=== PATIENT | male | born 1950 | race Caucasian/White ===

== ENCOUNTER 2017-02-22 06:21 | Inpatient (IN) | payer OTHER ==
[2017-01-24 12:48] VITALS: BMI 26.0
--- NOTE | 2017-01-24 13:19 | PAT Medication Instructions ---
Service Date Jan 24, 2017. Current Home Medication List Atorvastatin (Lipitor), 60 MG PO QAM Clopidogrel Bisulfate (Plavix), 75 MG PO QAM Levothyroxine Sodium (Levothyroxine Sodium), 1 TAB PO QAM Lisinopril (Lisinopril), 40 MG PO QAM Pantoprazole (Protonix), 40 MG PO QAM Medication Instructions For Your Scheduled Surgery - Hold the following medications for 7 days per anesthesia guidelines, check with your prescriber : Clopidogrel Bisulfate (Plavix), 75 MG PO QAM - Hold the following medications the morning of surgery: Lisinopril (Lisinopril), 40 MG PO QAM - Take the following medications the morning of surgery with a sip of water: Pantoprazole (Protonix), 40 MG PO QAM Levothyroxine Sodium (Levothyroxine Sodium), 1 TAB PO QAM Atorvastatin (Lipitor), 60 MG PO QAM If you have any questions please call us at [phone] or [phone] or [phone]
[2017-01-24 14:11] LABS: BASO % 0.1 %; BASO ABS # 0.01 K/uL (0-0.2); COMPLETE YES; EOS % 0.4 %; HEMATOCRIT 42.8 % (42-52); IG% 0.1 %; LYMPH % 17.6 %; LYMPH ABS # 1.28 K/uL (1.2-3.4); MEAN CELL VOLUME 95.3 fL (80-100); MEAN CORPUSCULAR HEMOGLOBIN 32.5 pg (25-34); MEAN CORPUSCULAR HGB CONC 34.1 g/dl (32-36); MONO % 6.2 %; NEUT % 75.6 %; PLATELET COUNT 227 K/uL (130-400); RED BLOOD COUNT 4.49 M/uL (4.7-6.1); WHITE BLOOD COUNT 7.28 K/uL (4.8-10.8)
[2017-01-24 14:16] LABS: URINE APPEARANCE CLEAR (CLEAR); URINE BILIRUBIN NEG (NEG); URINE COLOR YELLOW; URINE NITRITE NEG (NEG); UROBILINOGEN NEG (NEG)
[2017-01-24 14:17] LABS: CALCIUM 9.2 mg/dl (8.5-10.1); CREATININE 1.6 mg/dl (0.60-1.40); POTASSIUM 4.1 mmol/L (3.5-5.1)
[2017-01-24 14:18] LABS: PROTHROMBIN TIME (PATIENT) 10.3 SECONDS (9.0-12.0)
[2017-01-24 14:26] LABS: MANUAL MICROSCOPIC REQUIRED? NO; REVIEW REQ? NO
--- NOTE | 2017-01-24 14:42 | DIAGNOSTIC IMAGING REPORT ---
CHEST PREADMISSION(PA/LAT) HISTORY: Preop. COMPARISON: None. FINDINGS: Old, healed right-sided rib fractures. The lungs are clear. No pleural effusions. No pneumothorax. The heart is normal in size. IMPRESSION: No acute process. Electronically signed by: Mario Cowart M.D. 01/24/2017 2:41 PM Dictated Date/Time: 01/24/2017 2:40 PM
--- NOTE | 2017-02-20 14:10 | HISTORY & PHYSICAL EXAMINATION ---
DATE OF ADMISSION: CHIEF COMPLAINT: Right hip pain. HISTORY OF PRESENT ILLNESS: The patient is a 67-year-old gentleman with known osteoarthritis about his right hip. He is unable to take anti-inflammatories due to use of Plavix. He has pain and disability with activities of daily living. He has pain with prolonged weightbearing and standing activities. He has difficulty with any kneeling, bending, or squatting activities. Due to ongoing pain and disability, he now desires to proceed with right total hip arthroplasty. PAST MEDICAL HISTORY: Coronary artery disease status post cardiac stents, hypertension, hypercholesterolemia, hypothyroidism, acid reflux. PAST SURGICAL HISTORY: Cholecystectomy, hernia repair. MEDICATIONS: Lisinopril 40 mg daily, pantoprazole 40 mg daily, levothyroxine 125 mcg daily, Plavix 75 mg daily, atorvastatin 40 mg 1-1/2 tablets daily. ALLERGIES: No known drug allergies. SOCIAL HISTORY: He states weekly alcohol use. PHYSICAL EXAMINATION: GENERAL: Well-nourished, well-developed male who appears stated age. HEENT: Normocephalic, atraumatic, extraocular movements intact, oropharynx pink and moist. NECK: Supple without adenopathy. LUNGS: Clear to auscultation bilaterally. HEART: Regular rate and rhythm. ABDOMEN: Soft, nontender, nondistended. EXTREMITIES: Upper extremities are within normal limits. The right hip demonstrates limited range of motion. There is 0 degrees of external rotation, 20 degrees of internal rotation. X-RAYS: X-rays were reviewed. He has severe osteoarthritis about the right hip with complete loss of the joint space. There are large osteophytes about the femoral head and acetabulum. There is deformation of the femoral head. ASSESSMENT: Right hip degenerative joint disease. PLAN: Risks versus benefits were discussed. Consent was obtained. The patient's primary care physician is Dr. Gamal Rowley from [place]. We will proceed with right total hip arthroplasty upon preoperative workup and medical clearance.
[2017-02-22] VITALS (8 sets, daily range): BP systolic 106–134; BP diastolic 61–84; PULSE 58–102; TEMP 36.4–37.1; O2SAT 95–99; Ht 177.8 cm; Wt 82.0 kg
[~2017-02-22] VITALS: Ht 177.8 cm; Wt 82.0 kg
[~2017-02-22 06:21] MED LIST: ACETAMINOPHEN 500 MG TAB PO SCH; ATOR-24 PO; CEFAZOLIN 2000MG IV PUSH 10 ML IV SCH; CLOP1TAB5 PO; CeleBREX 200 MG CAP PO SCH; DEXAMETHASONE 4 MG TAB PO SCH; FAMOTIDINE 20 MG TAB PO SCH; GABAPENTIN 300 MG CAP PO SCH; LACTATED RINGER'S 1000ML 1,000 ML IV SCH; LACTATED RINGER'S 1000ML IV SCH; LACTATED RINGER'S 500 ML IV SCH; LEVO125T5 PO; LSN40 PO; METOCLOPRAMIDE HCL 10 MG TAB PO SCH; PANT40TA PO; ROPIVACAINE 5MG/ML 30 ML 150 MG, BUPIVACAINE 0.5% MPF INJ 30 ML, EpINEphrine HCL INJ 0.... INFIL SCH
[2017-02-22] MEDS: TRANEXAMIC ACID INJ 1,000 MG in SODIUM CHLORIDE 0.9% 100ML 100 ML IV SCH ×2 (06:30→08:47)
[2017-02-22] MEDS ORDERED: BUPIVACAINE 0.5 % 5 MG/1 ML PF 10ML VIAL ONE (06:47)
--- NOTE | 2017-02-22 07:37 | History & Physical Bridge Note ---
H&P Re-Evaluation Bridge Note: I have examined the patient, reviewed the History & Physical and in the interval since the performance of the History & Physical I have noted the following changes of clinical significance: No changes noted
[2017-02-22] MEDS ORDERED: MIDAZOLAM HCL 1 MG/ML 2ML VIAL ONE ×2 (07:43→08:39)
[2017-02-22] MEDS ORDERED: FENTANYL CITRATE INJ 50 MCG/1 ML 2 ML VIAL ONE (07:43)
[2017-02-22] MEDS ORDERED: POVIDONE-IODINE OP SOLN 30 ML BTL ONE (08:13)
[2017-02-22] MEDS ORDERED: ORTHO JOINT ANESTHETIC ONE (08:13)
[2017-02-22] MEDS ORDERED: BACITRACIN 50000 UNIT VIAL ONE (08:13)
[2017-02-22] MEDS ORDERED: NALOXONE HCL 0.4 MG/1 ML VIAL/CARP IV PRN (08:15)
[2017-02-22] MEDS ORDERED: PHENYLEPHRINE 100MCG/ML 5ML SYR IV PRN (08:15)
[2017-02-22] MEDS ORDERED: HYDROmorphone INJ 2 MG/ML SYR/VIAL IV PRN (08:15)
[2017-02-22] MEDS ORDERED: MEPERIDINE HCL 25 MG/ML CARP IV PRN (08:15)
[2017-02-22] MEDS ORDERED: ONDANSETRON INJ 2 MG/ML 2 ML VIAL IV PRN ×2 (08:15→10:30)
[2017-02-22] MEDS ORDERED: FLUMAZENIL 0.1 MG/1 ML 10 ML VIAL IV PRN (08:15)
[2017-02-22] MEDS ORDERED: ATROPINE SULFATE 0.1 MG/ML 5ML SYR IV PRN (08:15)
[2017-02-22] MEDS ORDERED: EpHEDrine SULFATE INJ 50 MG/ML AMP IV PRN (08:15)
[2017-02-22] MEDS ORDERED: FENTANYL CITRATE INJ 50 MCG/1 ML 2 ML VIAL IV PRN (08:15)
[2017-02-22] MEDS ORDERED: LABETALOL HCL IV 5 MG/ML 20ML IV PRN (08:15)
[2017-02-22] MEDS ORDERED: EpHEDrine SULFATE 50MG/5ML SYR ONE (09:25)
[2017-02-22] MEDS ORDERED: ONDANSETRON INJ 2 MG/ML 2 ML VIAL ONE (09:25)
[2017-02-22] MEDS ORDERED: PROPOFOL IV EMULSION 10 MG/ML 20 ML VIAL IV ONE (09:25)
[2017-02-22] MEDS ORDERED: PHENYLEPHRINE 100MCG/ML 5ML SYR ONE (09:25)
--- NOTE | 2017-02-22 09:48 | [facility] Post Operative Brief Note ---
Immediate Operative Summary Operative Date Feb 22, 2017. Pre-Operative Diagnosis Right Hip Osteoarthritis Post-Operative Diagnosis Same as preop Procedure(s) Performed Right Total Hip Arthroplasty Uncemented Surgeon Dr. Ramesh Parking Enforcement Manager Surgeon(s) Kurt Ceja PA-C Estimated Blood Loss 100cc Findings severe oa Specimens A. Right Femoral Head Complication(s) None Disposition Recovery Room / PACU
--- NOTE | 2017-02-22 10:11 | OPERATIVE REPORT ---
DATE OF OPERATION: 02/22/2017 PREOPERATIVE DIAGNOSIS: Osteoarthritis, right hip. POSTOPERATIVE DIAGNOSIS: Osteoarthritis, right hip. PROCEDURE: Right connective total hip arthroplasty. SURGEON: Dr. Ramesh. LABORER SHIPYARD: JESUS Weathers ANESTHESIA: spinal COMPLICATIONS: None. OPERATION AND FINDINGS: PROCEDURE: Following induction of adequate anesthesia, the patient was placed in left lateral decubitus position and right Robert-Langenbeck incision was made. Subcutaneous tissue was sharply dissected. Electrocautery used for hemostasis. The fascia was incised throughout the length of the wound and a robison scissor placed beneath the short external rotators. The pyriformis was tagged with #1 Vicryl. The short external rotators were divided from the posterior aspect of the femur using electrocautery. These were swept posteriorly. A T-capsulotomy incision was made and the hip was dislocated using a combination of flexion, adduction, and internal rotation. Exposure of the femoral neck with old-style Hohmann and a blunt Hohmann was carried out and a femoral rasp was utilized as a guide for making the appropriate level femoral neck cut. This bone fragment was removed and reserved on the back table. Next, attention was turned to the acetabulum where bone hook was used to retract the femur while the offset retractors were placed anterior and posteriorly. A double-angled Hohmann was placed in superior and anterior position exposing the acetabulum nicely. Acetabular labrum as well as posterior capsule elements were removed using a long knife and a long pickup. Fovea centralis was cleared of all soft tissue. Sequential reamings were carried up to a 58 and decision was made to proceed with impaction of a 58 trabecular metal cup. This was impacted and held using a single 35 mm bone screw. The acetabular liner was placed with 15 of elevated posterior wall in the superior and posterior position. Next, attention was turned to the femoral portion of the case where a Bovie and pickup was used to further clear short external rotators from their insertion on the femur. Box osteotome was used to gain access to the femoral canal and the T-handled rasp and a rattail rasp were used to further open and lateral the canal. Sequentially raspings were carried up to a 3 x 127 degree, which gave good fit and fill of the proximal femur. A trial reduction was carried out and a 132 degree femoral neck component was chosen as the size to be used. A +2.5 x 36-mm ceramic femoral head was impacted into position, +0 head was utilized. The trial reduction was stable in all degrees of rotation with no bcve-is-ryak impingement. The hip was dislocated. The trial components were removed and the final femoral stem, neck, and femoral head combination were assembled on the back table and impacted into position. Hip was relocated. Range of motion checked once again successful and the wound was irrigated. The pyriformis repaired to the greater trochanter using #1 Vicryl [id number] suture. A Hemovac drain was placed and the fascia was closed using #1 Vicryl, subcutaneous tissue was closed using 0 Dexon, and skin was closed with rigoberto. Sterile dressing of Adaptic, 4 x 4's, ABDs, and foam tape was applied. The patient tolerated the procedure well. Due to the complex nature of the procedure, the entire surgery was performed with the operational assistance of JESUS Weathers. The housekeeper/laundry assistant, under direct supervision, was involved in the actual performance of all aspects of the surgical procedure including hemostasis, tissue retraction and incision, instrument management, patient positioning, and wound closure. Mr. Ceja was the housekeeper/laundry assistant in the case. He was crucial throughout all portions of this case including prepping, draping, surgical instrument maker, wound closure and dressing application. I attest to the content of the Intraoperative Record and any orders documented therein. Any exceptions are noted below. ARLET
--- NOTE | 2017-02-22 10:15 | DIAGNOSTIC IMAGING REPORT ---
SINGLE VIEW RIGHT HIP; SINGLE VIEW FEMORAL HEAD SPECIMEN CLINICAL HISTORY: Retained foreign body. Broken clamp noted during surgery. FINDINGS: An AP portable view of the right hip and a portable view of the right femoral head specimen are presented. A bipolar right hip arthroplasty is in near anatomic alignment. A single cortical lag screw transfixes the acetabular cup. No fracture is seen. No radiodense foreign body is identified on the femoral head specimen or overlying the hip. Soft tissue edema is noted. IMPRESSION: 1. No radiodense foreign body is identified projecting over the right hip or the femoral head specimen. 2. A right hip arthroplasty is in near-anatomic alignment. No acute fracture is seen. Electronically signed by: Darren Liang M.D. 02/22/2017 10:13 AM Dictated Date/Time: 02/22/2017 10:12 AM
[2017-02-22] MEDS ORDERED: CEFAZOLIN IV 2,000 MG in DEXTROSE 5% 50ML 50 ML IV SCH (10:30)
[2017-02-22] MEDS ORDERED: MoRPHine SULFATE 2 MG/ML CARP IV PRN (10:30)
[2017-02-22] MEDS ORDERED: OXYCODONE HCL IR 5 MG TAB (IMMEDIATE RELEASE) PO PRN (10:30)
[2017-02-22] MEDS ORDERED: TRAMADOL HCL 50 MG TAB PO PRN (10:30)
[2017-02-22] MEDS ORDERED: BISACODYL 10 MG SUPP PR PRN (10:30)
[2017-02-22] MEDS ORDERED: MAGNESIUM HYDROXIDE SUSP 30 ML UDC PO PRN (10:30)
[2017-02-22] MEDS ORDERED: ALUMINUM/MAGNESIUM/SIMETH (MAALOX MAX) 30 ML UDC PO PRN (10:30)
--- NOTE | 2017-02-22 10:38 | Anesthesiology Progress Note ---
Anesthesia Post Op Note Date & Time Feb 22, 2017 at 10:37 Vital Signs Pain Intensity: 2 Vital Signs Past 12 Hours Date Time Temp Pulse Resp B/P (MAP) Pulse Ox O2 Delivery O2 Flow Rate FiO2 02/22/17 06:58 36.7 58 21 128/74 97 Room Air Notes Mental Status: alert / awake / arousable, participated in evaluation Pt Amnestic to Procedure: Yes Nausea / Vomiting: adequately controlled Pain: adequately controlled Airway Patency, RR, SpO2: stable & adequate BP & HR: stable & adequate Hydration State: stable & adequate Neuraxial Anesthesia: was administered, sensory block is resolving Anesthetic Complications: no major complications apparent
--- NOTE | 2017-02-22 10:58 | DIAGNOSTIC IMAGING REPORT ---
SINGLE VIEW PELVIS; SINGLE VIEW RIGHT HIP CLINICAL HISTORY: Postoperative examination. FINDINGS: An AP portable view of the hips and pelvis with 2 crosstable lateral portable views of the right hip are obtained. Correlation is made with right hip radiograph performed earlier the same day 02/22/2017. A bipolar right hip arthroplasty is in place. The femoral head is not seated within the acetabular cup on the first 2 images and has been appropriate positioned on the final image. A single cortical lag screw transfixes the acetabular cup. No acute fracture is identified. There are expected postoperative changes overlying the right hip including subcutaneous gas, a surgical drain, and soft tissue swelling. Foci of atherosclerotic calcification are present in the right femoral artery. Mild arthritic change is seen in the left hip. No radiodense foreign body is identified. IMPRESSION: 1. A right hip arthroplasty is in place. The final image shows the arthroplasty is in near-anatomic alignment. See above. 2. Expected postoperative changes overlie the right hip. No radiodense foreign body is seen. Electronically signed by: Darren Liang M.D. 02/22/2017 10:57 AM Dictated Date/Time: 02/22/2017 10:54 AM
--- NOTE | 2017-02-22 11:45 | DIAGNOSTIC IMAGING REPORT ---
SINGLE VIEW PELVIS CLINICAL HISTORY: Postoperative examination. FINDINGS: An AP portable view of the hips and lower pelvis is compared to studies performed earlier the same day 02/22/2017. A bipolar right hip arthroplasty is in near-anatomic alignment. A single cortical lag screw transfixes the acetabular cup. No acute fracture is identified. There are expected postoperative changes overlying the right hip including subcutaneous gas, a surgical drain, and soft tissue swelling. IMPRESSION: Expected postoperative findings status post right hip arthroplasty. No acute fracture is seen. Electronically signed by: Darren Liang M.D. 02/22/2017 11:44 AM Dictated Date/Time: 02/22/2017 11:42 AM
[2017-02-22] MEDS ORDERED: MoRPHine SULFATE 10 MG/ML CARP/VIAL IV PRN (12:00)
[2017-02-22] MEDS ORDERED: MoRPHine SULFATE 4 MG/ML 1 ML CARP\\VIAL IV PRN (12:00)
[2017-02-22] MEDS: FERROUS GLUCONATE 324 MG TAB PO SCH ×2 (12:47→17:24)
[2017-02-22] MEDS: D5W AND 1/2NSS + 20MEQ KCL 1,000 ML IV SCH ×2 (12:47→22:20)
[2017-02-22] MEDS: ACETAMINOPHEN 500 MG TAB PO SCH ×2 (14:14→21:17)
[2017-02-22] MEDS ORDERED: INFLUENZA VACCINE HIGH DOSE 65+ 0.5 ML SYR IM. ONE (15:15)
[2017-02-22] MEDS ORDERED: INFLUENZA ADMINISTRATION CHARGE ONE (15:15)
[2017-02-22] MEDS: CEFAZOLIN IV 2,000 MG in SYRINGE 0 ML IV SCH (16:40)
[2017-02-22] MEDS ORDERED: SENNA 8.6 MG TAB PO SCH (21:00)
[2017-02-22] MEDS: DOCUSATE SODIUM 100 MG CAP PO SCH (21:17)
[2017-02-22] MEDS: ASPIRIN 81 MG ECTAB PO SCH (21:17)
[2017-02-23] MEDS: CEFAZOLIN IV 2,000 MG in SYRINGE 0 ML IV SCH (00:46)
[2017-02-23 03:27] VITALS: BP 103/63; PULSE 65; TEMP 36.9; O2SAT 97
[2017-02-23] MEDS: ACETAMINOPHEN 500 MG TAB PO SCH ×2 (05:59→13:28)
[2017-02-23] MEDS ORDERED: LEVOTHYROXINE 125 MCG TAB PO SCH (06:00)
[2017-02-23 06:28] LABS: BASO % 0.1 %; BASO ABS # 0.01 K/uL (0-0.2); COMPLETE YES; HEMATOCRIT 32.4 % (42-52); IG% 0.3 %; LYMPH % 6.8 %; MEAN CELL VOLUME 93.1 fL (80-100); MEAN CORPUSCULAR HEMOGLOBIN 32.5 pg (25-34); MEAN CORPUSCULAR HGB CONC 34.9 g/dl (32-36); MEAN PLATELET VOLUME 9.5 fL (7.4-10.4); MONO % 8.2 %; NEUT % 84.6 %; PLATELET COUNT 138 K/uL (130-400); RED BLOOD COUNT 3.48 M/uL (4.7-6.1); WHITE BLOOD COUNT 13.24 K/uL (4.8-10.8)
[2017-02-23 07:00] LABS: BUN/CREATININE RATIO 13.7 (10-20); CALCIUM 8.7 mg/dl (8.5-10.1); CREATININE 1.4 mg/dl (0.60-1.40); POTASSIUM 4.1 mmol/L (3.5-5.1)
--- NOTE | 2017-02-23 07:49 | Orthopedic Progress Note ---
Orthopedic Progress Note Date of Service Feb 23, 2017. Subjective Post OP Day: 1 Reports: feeling well Objective N/V intact, dressing C/D/I (Hemova in place), toes mobile Date Time Temp Pulse Resp B/P (MAP) Pulse Ox O2 Delivery O2 Flow Rate FiO2 02/23/17 03:27 36.9 65 16 103/63 (76) 97 Room Air 02/23/17 00:50 Room Air 02/22/17 23:56 37.1 66 16 106/64 (78) 95 Room Air 02/22/17 19:09 36.7 102 18 134/82 (99) 99 Room Air 02/22/17 15:30 Room Air 02/22/17 14:44 99 16 127/84 (98) 99 Room Air 0.0 02/22/17 13:48 93 16 125/76 (92) 99 2.0 02/22/17 12:45 Nasal Cannula 2.0 02/22/17 12:41 72 16 117/68 (84) 97 Nasal Cannula 02/22/17 12:16 72 16 111/61 (78) 96 Nasal Cannula 2.0 02/22/17 11:45 Nasal Cannula 2.0 02/22/17 11:45 Nasal Cannula 02/22/17 11:45 36.4 68 18 111/63 (79) 98 Nasal Cannula 2.0 02/22/17 11:20 68 16 108/62 95 Nasal Cannula 4 02/22/17 11:10 68 16 103/62 95 Nasal Cannula 4 02/22/17 11:00 85 16 107/65 95 Nasal Cannula 4 02/22/17 10:50 66 16 110/58 96 Nasal Cannula 4 02/22/17 10:40 88 16 122/67 96 Nasal Cannula 4 02/22/17 10:30 80 16 112/53 97 Nasal Cannula 4 02/22/17 10:20 36.2 85 16 115/63 95 Nasal Cannula 4 Laboratory Results 24 Hours: Test 02/23/17 05:57 White Blood Count 13.24 K/uL Red Blood Count 3.48 M/uL Hemoglobin 11.3 g/dL Hematocrit 32.4 % Mean Corpuscular Volume 93.1 fL Mean Corpuscular Hemoglobin 32.5 pg Mean Corpuscular Hemoglobin Concent 34.9 g/dl Platelet Count 138 K/uL Mean Platelet Volume 9.5 fL Neutrophils (%) (Auto) 84.6 % Lymphocytes (%) (Auto) 6.8 % Monocytes (%) (Auto) 8.2 % Eosinophils (%) (Auto) 0.0 % Basophils (%) (Auto) 0.1 % Neutrophils # (Auto) 11.20 K/uL Lymphocytes # (Auto) 0.90 K/uL Monocytes # (Auto) 1.09 K/uL Eosinophils # (Auto) 0.00 K/uL Basophils # (Auto) 0.01 K/uL Assessment & Plan Assessment: 67 yo male stable POD #1 s/p right THOM Plan: 1. Med management 2. DVT prophylaxis- ASA and Plavix, SCDs 3. PT/OT 4. D/C planning- home w/out services
[2017-02-23] MEDS ORDERED: ACET-24 PO (07:53)
[2017-02-23] MEDS ORDERED: RXC5 PO (07:53)
[2017-02-23] MEDS ORDERED: ASPEC81 PO (07:53)
--- NOTE | 2017-02-23 07:55 | Discharge Instructions ---
Discharge Instructions Date of Service Feb 23, 2017. Admission Reason for Admission: Right Hip Osteoarthritis Discharge Discharge Diagnosis / Problem: Right hip arthritis Discharge Goals Goal(s): Decrease discomfort, Improve function Activity Recommendations Activity Limitations: as noted below Weightbearing Status: Right weightbearing (as tolerated) . Instructions / Follow-Up Instructions / Follow-Up ACTIVITY RECOMMENDATIONS: SELF CARE INSTRUCTIONS AFTER TOTAL HIP REPLACEMENT Until the incision and soft tissues around your hip have healed, there is a possibility that the hip prosthesis could dislocate. A. Observe the following precautions to prevent dislocation: 1. Don't bend your hip greater than 90 degrees. 2. Avoid crossing your legs or ankles while standing or lying. 3. Sit with your feet placed 6 inches apart. 4. When sitting, keep your knees below your hips. Sit on a firm surface, avoid deep, soft chairs and couches. Use an elevated toilet seat in the bathroom. 5. Don't bend over at the waist. Use a long handled shoehorn and a sock aid to help you put on your shoes and socks. A tray service worker can help you pickle solution maker objects that are too high or too low to reach. 6. Keep car riding to a minimum for at least one month after surgery. B. Your balance may be shaky for a while. Use crutches or a walker until directed by your doctor. C. Use hand rails when walking on stairs. D. Wear low heeled shoes with non-slip soles. E. Be sure that your floors are free of things that could trip you - throw rugs , electrical cords, small objects. Avoid wet and waxed floors, especially with crutches and canes. F. Try to walk several times a day with rest periods between. G. Continue with all the exercises taught to you in the hospital. Again, make walking a part of your daily routine. SPECIAL CARE INSTRUCTIONS: VERY IMPORTANT TO READ AND REVIEW A. You may still be at risk for phlebitis and blood clots. 1. Wear surgical stockings (FANNIE hose) for 2 weeks after surgery to improve circulation and reduce swelling. 2. Take Aspirin 81mg twice daily for 4 weeks or as directed by your doctor. This is your blood thinner. 3. High risk patients may be prescribed a stronger blood thinner if necessary. 4. If you are on Coumadin normally, your family doctor/scrubbing machine operator should monitor your blood work. Expect a phone call the day of or the day after bloodwork is drawn to adjust your dosage. B. You must take antibiotics before having dental work, bladder, bowel and other surgery. Your doctor will provide you with a permanent card to carry describing precautions. C. Call [facility] if you have a fever, redness or swelling around the incision, cloudy drainage from incision, or sudden increase in pain in your hip, not relieved by your regular pain medication. D. Please call the office at if you have any concerns or questions about your operation or recovery. * YOU MAY SHOWER, NO TUB BATHS UNTIL CLEARED BY YOUR DOCTOR. * WEAR FANNIE HOSE 20 HOURS PER DAY FOR 2 WEEKS. * YOU SHOULD USE A WALKER OR CRUTCHES FOR 2-4 WEEKS. THIS WILL HELP PREVENT STRAIN ON YOUR HIP MUSCLE AND ALLOW IT TO HEAL PROPERLY. YOU MAY WEAN TO A CANE TOLERATED. * MOST PATIENTS WILL HAVE HOME NURSING FOR THERAPY. IF YOU DECIDE TO DO OUTPATIENT PHYSICAL THERAPY, PLEASE SCHEDULE THIS 3 TIMES PER WEEK. Silverlon- This is a large adhesive bandage that contains silver ions. This helps your incision heal by fighting off bacteria and protecting it from the outside environment. You are permitted to shower with this dressing. This will remain on your incision for 7 days and then should be removed. Some visible blood or drainage through the dressing window is normal. If there is significant drainage or leaking noted before the 7 days notify your doctor's office immediately. Once removed, keep incision clean and dry. If there is any drainage or redness noted, please call your surgeon. FOLLOW UP VISIT: If appointment is not already scheduled: Please call [facility] to make a follow-up appointment for 2 weeks after your surgery at . Current Hospital Diet Patient's current hospital diet: Regular Diet Discharge Diet Recommended Diet: Regular Diet Procedures Procedures Performed: Right Total Hip Arthroplasty Uncemented Pending Studies Studies pending at discharge: no Laboratory Results Hemoglobin A1c Test 01/24/17 13:30 Range/Units Estimated Average Glucose 105 mg/dl Hemoglobin A1c 5.3 4.5-5.6 % Medical Emergencies . Who to Call and When: Medical Emergencies: If at any time you feel your situation is an emergency, please call 911 immediately. . Non-Emergent Contact Non-Emergency issues call your: Surgeon Call Non-Emergent contact if: temperature is above 101.5, your pain is not controlled, wound has increased drainage, wound has increased redness . "Provider Documentation" section prepared by Brad Smith PA-C. . VTE Core Measure Inpt VTE Proph given/why not?: Other Anticoagulation (ASA and Plavix), T.E.D. Stockings, SCD's [place] Drug Monitoring Program Search Results: patient reviewed within database, no issues identified
[2017-02-23 08:07] VITALS: BP 124/82; PULSE 64; TEMP 36.8; O2SAT 100
[2017-02-23] MEDS: FERROUS GLUCONATE 324 MG TAB PO SCH ×2 (08:47→13:28)
[2017-02-23] MEDS: DOCUSATE SODIUM 100 MG CAP PO SCH (08:48)
--- NOTE | 2017-02-23 08:56 | Anesthesiology Progress Note ---
Anesthesia Post Op Note Date & Time Feb 23, 2017 at 08:55 Vital Signs Pain Intensity: 1.0 Vital Signs Past 12 Hours Date Time Temp Pulse Resp B/P (MAP) Pulse Ox O2 Delivery O2 Flow Rate FiO2 02/23/17 08:07 36.8 64 16 124/82 (96) 100 Room Air 02/23/17 07:55 Room Air 02/23/17 03:27 36.9 65 16 103/63 (76) 97 Room Air 02/23/17 00:50 Room Air 02/22/17 23:56 37.1 66 16 106/64 (78) 95 Room Air Notes Mental Status: alert / awake / arousable, participated in evaluation Pt Amnestic to Procedure: Yes Nausea / Vomiting: adequately controlled Pain: adequately controlled Airway Patency, RR, SpO2: stable & adequate BP & HR: stable & adequate Hydration State: stable & adequate Neuraxial Anesthesia: sensory block resolved Anesthetic Complications: no major complications apparent
[2017-02-23] MEDS ORDERED: LISINOPRIL 40 MG TAB PO SCH (09:00)
[2017-02-23] MEDS ORDERED: ATORVASTATIN 20 MG TAB PO SCH (09:00)
[2017-02-23] MEDS ORDERED: CLOPIDOGREL BISULFATE 75 MG TAB PO SCH (09:00)
[2017-02-23] MEDS ORDERED: PANTOprazole SOD 40 MG TAB PO SCH ×2 (09:00)
[2017-02-23] MEDS ORDERED: MULTIVITAMIN TAB PO SCH (09:00)
[2017-02-23] MEDS: ASPIRIN 81 MG ECTAB PO SCH (10:18)
[2017-02-23 10:37] VITALS: O2SAT 100
[2017-02-23 12:14] VITALS: BP 126/84; PULSE 62; TEMP 36.8; O2SAT 100
[2017-02-23 14:28] VITALS: BP 126/84; PULSE 62; TEMP 36.8; O2SAT 100
== END 2017-02-23 14:55 | disposition home or self-care (01) | DRG 470 ==
LOC: C.ACU 06:21 → C.3E 07:00 → ENRESERV 11:03
PROC: 0SRA0JA Replacement of Right Hip Joint, Acetabular Surface with Synthetic Substitute, Uncemented, Open Approach (ICD-10-PCS; principal; 2017-02-22 09:00)
DX: M16.11 Unilateral primary osteoarthritis, right hip (principal); I25.10 Atherosclerotic heart disease of native coronary artery without angina pectoris; I10 Essential (primary) hypertension; E78.00 Pure hypercholesterolemia, unspecified; E03.9 Hypothyroidism, unspecified; K21.9 Gastro-esophageal reflux disease without esophagitis; Z90.49 Acquired absence of other specified parts of digestive tract